=== PATIENT | male | born 1960 | race Caucasian/White ===

== ENCOUNTER 2016-05-08 04:37 | Emergency (ER) | payer BC ==
[2016-05-08] MEDS ORDERED: DUONEB INH ONE (07:44)
[2016-05-08] MEDS ORDERED: PREDNISONE 20 MG TAB PO ONE (07:45)
== END 2016-05-08 09:01 | disposition home or self-care (01) ==
LOC: ER 04:37
CPT/HCPCS: 36415; 71020; 80053; 85025; 87804; 87880; 94640